=== PATIENT | female | born 1950 | race Caucasian/White ===

== ENCOUNTER 2016-08-29 01:40 | Inpatient (IN) | payer OTHER, MEDICARE ==
[~2016-08-29] VITALS: Ht 157.5 cm; Wt 72.6 kg
[~2016-08-29 01:40] MED LIST: ATORVASTATIN CA40 M1 PO; CALTRATE 600 +1 EACH PO; CETIRIZINE HCL10 M2 PO; CHLORTHALIDONE25 M1 PO; FLUTICASONE PRO16 GM NASB; LISINOPRIL20 M1 PO; MOBIC15 M1 PO; MONTELUKAST SOD10 M1 PO; TRILEPTAL300 M1 PO; VITAMIN D2000 UNIT PO; WELLBUTRIN SR150 M1 PO
--- NOTE | 2016-08-29 09:33 | Operative Report ---
Operative/Inv Procedure Report Surgery Date: 08/29/16 Name of Procedure: Left total knee arthroplasty Pre-Operative Diagnosis: Left knee primary osteoarthritis Post-Operative Diagnosis: Same Estimated Blood Loss: less than 50ml Surgeon/Telemarketer Supervisor: CHINMAY BURROWS,Ford LEE Anesthesia: block Implants: Jason triathlon total knee system-size 3 femur, size 3 tibia, 9 mm cruciate retaining polyethylene, 29 patella Drains: None Specimens: Femoral, tibial, patellar bone Microbiology: Urine Tourniquet: 52 minutes Complications: None Condition: Stable Operative Indication: Patient is a 66-year-old woman with a history of worsening left knee pain. She' s been diagnosed with end-stage osteoarthritis. She underwent conservative management including medications and injections and activity modification but had persistent and worsening symptoms that interfere with normal activities of daily living. She wished to proceed with total knee arthroplasty after discussion of risks, benefits and expectations which included but were not limited to persistent knee pain, need for subsequent surgery, infection, DVT, injury to blood vessel or nerve, anesthesia risks. Operative/Procedure Note Note: Patient was brought to the operating room and transferred to the operating table. Once under appropriate anesthesia the left lower extremity was prepped and draped in standard fashion. Preoperative IV antibiotics were given prophylactically. Leg was elevated exsanguinated tourniquet was inflated. Patient was under the TXA protocol. Standard anterior incision was made for anticipated medial parapatellar approach. Incision was taken down sharply to the underlying retinaculum. A medial retinacular approach was used with a minimal extension into the quadriceps tendon. Osteophytes were excised from patellofemoral and medial compartment remnants of the medial lateral meniscal tissues were excised. Remnants of the ACL were excised. Knee was flexed I then used a drill to enter the intramedullary canal for the intramedullary guide for the distal femoral cut. This cut was set for 6 valgus cut. The cut was made while protecting the soft tissues. I then sized the femur to a size 3. Size 3 cutting guide was pinned in place and the 4 cuts were made again with protecting the soft tissues. I then turned my attention to the tibia. Remnants of the posterior horns of the medial lateral meniscal tissues were excised. The PCL was recessed for balancing purposes. The tibia was subluxed forward and then the external tibial alignment guide was used. The cutting block was pinned in position for a neutral cut from medial to lateral and reproducing patient's posterior slow-paced on preoperative templating and intraoperative measurements. Again the soft tissues were protected with retractors posteriorly and medially and laterally. After the cut was made the tibia was sized to a size 3. Trial was used of size 3 tibia size 3 femur and a 9 mm insert. The knee the knee was taken out to full extension was some mild tenderness medially this was balanced. I then turned my attention to the patella. The patella was measured the appropriate thickness was removed and then restored with a 29 mm patella. The 3 lug holes were drilled. The 2 lug holes of the femur were drilled and the tibial rotation was marked. All trial components and inserted rotation was removed from the knee and then I finished preparation tibia with the tibial punch. This was done standard fashion with the appropriate punch size. I then removed all instrumentation. Copious irrigation the knee followed. I used the anterior chamfer bone of the femur to plug the distal femur hole that was used for the joint to a guide this would minimize postoperative hemarthrosis and swelling. After copious irrigation the knee cement was applied to the dry clean bony surfaces of the tibia. The size 3 tibia was impacted in place with the correct rotation as determined by the trial. Excess cement was removed with curettes. Cement was applied to the dry clean bony surfaces of the femur. The size 3 femoral component was impacted in place and excess cement was removed with curettes. The trial 9 my polyethylene was impacted in place and the knee was taken out to full extension area cement was applied to the dry clean bony surfaces of the patella. The size 29 patella was impacted in place and excess cement was removed. The knee was taken out to full extension left there until cement hardened. I did a periarticular pericapsular injection of ropivacaine with Toradol and epinephrine for postoperative pain and inflammation management. Once cement was hardening took the knee through range of motion. Small pieces of excess cement were removed with osteotomes. The trial polyethylene was removed after determining that the that would it was the appropriate size. 9 mm insert was appropriate for full extension good mid flexion stability and full flexion to gravity. After copious irrigation the tibial tray, I impacted the definitive 9 mm insert. The locking mechanism was confirmed. Knee was taken out to full extension. Again I was satisfied with the stability. I was satisfied with patellar tracking. There was no need for a lateral release. After copious irrigation the tourniquet was deflated at 52 minutes. Hemostasis was obtained. There was no need for a drain. I then closed the medial parapatellar approach with interrupted #1 Vicryl sutures.. This was followed by 2 layer closure with 2-0 Vicryl and skin was closed running 3-0 Vicryl suture with the knee in flexion. Appropriate dressings were applied and patient was awakened and taken the recovery room in good condition. No intraoperative complications. Blood loss was less than 50 mL Discharge Disposition: PACU
[2016-08-29 12:42] VITALS: BP 128/68
[2016-08-29 14:41] VITALS: BP 96/50
--- NOTE | 2016-08-29 15:10 | PN- Orthopedic ---
Subjective Subjective: Pt admits to some nausea after eating soup, but reports relief with zofran. She seems to be tolerating morphine and has already ambulated with PT. She is sitting in the chair at this time and denies pain. Also denies DONOHUE, dizziness, CP , SOB. Objective Vital Signs and I&Os Vital Signs Date Time Temp Pulse Resp B/P B/P Pulse O2 O2 Flow FiO2 Mean Ox Delivery Rate 08/29 1441 97.5 73 18 96/50 94 Room Air 08/29 1242 97.4 70 18 128/68 97 Room Air Room Air Intake & Output 08/29 1600 08/29 0800 08/29 0000 08/28 1600 08/28 0800 08/28 0000 Intake Total 630 Output Total 250 Balance 380 Intake, IV 150 Intake, Oral 480 Output, 50 Emesis Output, Urine 200 Patient 160 lb Weight Physical Exam: Gen.: Patient is awake and alert. She is sitting in the chair. No acute distress. Cardiac: Regular Pulmonary: Lungs are clear bilaterally. Extremities: The left lower extremity dressing is clean, dry, and intact. Sensation is intact from the thigh down to the feet. Strength of dorsiflexion and plantar flexion are 4 out of 5 bilaterally. There is no significant calf tenderness. Alps and On-Q pump are in place. Assessment/Plan Assessment/Plan Patient is a 66-year-old female, smoker, who is now postoperative day #0 status post left total knee replacement. Plan: -Advance diet as tolerated. -Continue IV fluids for now. -Keep Polo catheter in place overnight for I's and O's. -Pain control with morphine or Percocet as needed. On-Q pain catheter is in place for additional relief. -Coumadin for DVT prophylaxis. Follow up INR in the morning. Titrate Coumadin dose to keep INR 2-3. -PT consult for mobilization. Weight-bear as tolerated. -IV antibiotics x 24 hours for prophylaxis. -Plan for dressing change on postoperative day #2. -Home meds have been resumed. Core Measures/Miscellaneous Polo Catheter Date In: 08/29/16 Still Needed? Yes Venous Thromboembolism VTE Risk Factors: Age > 40, Smoking, Surgery VTE Contraindications: No Contraindications VTE Diagnosis: No Beta Teo Is Beta Teo a Home Med? No Antibiotics Is Patient on Antibiotics? Yes If Yes: prophylaxis
--- NOTE | 2016-08-29 16:07 | Surgical Discharge Summary ---
Visit Information Visit Dates Admission Date: 08/29/16 Discharge Date: 09/01/16 History of Present Illness Chief Complaint: Left knee DJD/osteoarthritis, left knee pain Medical History Blood Transfusion Hx: No Neurological: NONE EENT: NONE Cardiovascular: hypertension, HIGH CHOLESTEROL Respiratory: NONE Gastrointestinal: NONE Hepatic: NONE Renal: NONE Musculoskeletal: NONE Psychiatric: NONE Endocrine: NONE Blood Disorders: NONE Cancer(s): NONE DRY CLEANING CHECKER/Reproductive: NONE History of MRSA: No History of VRE: No History of CDIFF: No Isolation History: Standard Surgical History Pertinent Surgical History: cholecystectomy, , hernia repair-inguinal, hernia repair-umbilical, knee replacement Psychosocial History Where Do You Live? Home Who Do You Live With? Patient/Self Services at Home: None What is Your Primary Language? Ukrainian Review of Systems: See H&P Hospital Course Course Attending Physician: CHINMAY BURROWS,MARC Primary Care Physician: ARNOLDO BURROWS,[facility] Course: Patient was admitted to [facility] for elective surgery on 08/29/2006 and underwent left total knee replacement. The patient tolerated the procedure well, without complications. The postoperative course remained uneventful. Pain was well controlled with oral pain medication, tolerated a regular diet, and voiding without difficulty. The patient was evaluated by physical therapy during admission, was deemed stable from a medical standpoint, and was discharged. Allergies: Coded Allergies: No Known Drug Allergies (NONE 08/29/16) Uncoded Allergies: SEASONAL ALLERGIES (Intermediate, NASAL CONGESTION 08/18/16) Significant Procedures: 08/29/2016 left knee replacement Disposition Summary Disposition Principal Diagnosis: Left knee DJD/osteoarthritis Additional Diagnosis: Hypertension, hyperlipidemia, active smoker, mood disorder Discharge Disposition: home health services Discharge Instructions General Discharge Information Code Status: Full Code Patient's Diet: Regular Patient's Activity: Avoid strenuous activity. You may ambulate as desired with rolling walker and progressed per PT recommendations. No driving while using narcotics and until cleared by M.D. Follow-Up Instructions/Appts: Avoid bathing, but you may shower as desired. Dry dressing change once daily. Please check INR on postoperative day #1 and then twice weekly thereafter. Please titrate Coumadin dose to keep INR 2-3. Please follow-up with Marc Bunch MD at 2 weeks postop for staple removal. Please report any of the following symptoms to M.D.: Fever greater than 101, redness around the incision, drainage from the wound, chest pain, shortness of breath. Medications at Discharge Discharge Medications: Continue taking these medications: Lisinopril (Lisinopril) 20 MG TABLET 1 Tablet ORAL Every night Qty = 90 Comments: PER PT NOT GIVEN IN HOSPITAL Atorvastatin Calcium (Atorvastatin Calcium) 40 MG TABLET 1 Tablet ORAL Every night Qty = 30 Comments: PER PT Last Taken: 08/31/16 Time: 900 PM Chlorthalidone (Chlorthalidone) 25 MG TABLET 1 Tablet ORAL Every Morning Qty = 30 Comments: PER PT Last Taken: 09/01/16 Time: 1000 AM Cetirizine HCl (Cetirizine HCl) 10 MG TABLET 1 Tablet ORAL DAILY Qty = 30 Comments: PER PT NOT GIVEN IN HOSPITAL Fluticasone Propionate (Fluticasone Propionate) 16 GM SPRAY.SUSP 1 [place] Both sides of nose DAILY Qty = 16 Comments: PER PT Calcium Carbonate/Vitamin D3 (Caltrate 600 + D Tablet) (Unknown Strength) TABLET Unknown Dose ORAL DAILY Comments: PER PT NOT GIVEN IN HOSPITAL Cholecalciferol (Vitamin D3) (Vitamin D) (Unknown Strength) CAPSULE Unknown Dose ORAL DAILY Comments: PER PT NOT GIVEN IN HOSPITAL Bupropion HCl (Wellbutrin Sr) 150 MG TABLET.ER 1 Tablet ORAL DAILY Comments: Last Taken: 09/01/16 Time: 1000 AM Oxcarbazepine (Trileptal) 300 MG TABLET 1 Tablet ORAL DAILY Comments: Last Taken: 09/01/16 Time: 1000 AM Start taking the following new medications: Warfarin Sodium (Coumadin) 5 MG TABLET 1 Tablet ORAL DAILY Qty = 30 No Refills Instructions: TITRATE DOSE TO KEEP INR 2-3 Comments: SEE ABOVE Oxycodone HCl/Acetaminophen (Percocet 5-325 MG Tablet) 5 MG-325 MG TABLET 1-2 Tablet ORAL EVERY 4 HOURS NEEDED as needed for PAIN Qty = 36 No Refills Comments: Last Taken: 09/01/16 Time: 1000 AM Docusate Sodium (Colace) 100 MG CAPSULE 1 Capsule ORAL TWICE DAILY as needed for CONSTIPATION Days = 7 No Refills Comments: Last Taken: 09/01/16 Time: 900 PM Polyethylene Glycol 3350 (Miralax) 17 GRAM POWD.PACK 1 Packet ORAL DAILY as needed for CONSTIPATION Days = 7 No Refills Comments: Last Taken: 08/31/16 Time: 1000 AM [PT/INR] 1 ANY 2 times per week No Refills Instructions: PT/INR BLOOD DRAW 2X PER WEEK TO KEEP INR BETWEEN 2-3 DX: DVT PROPHYLAXSIS AFTER TKA RESULTS TO DR RASCON Morphine Sulfate (Ms Contin) 15 MG TABLET.ER 1 Tablet ORAL TWICE DAILY Qty = 6 No Refills Comments: Last Taken: 09/01/16 Time: 1000 AM Methocarbamol (Robaxin-750) 750 MG TABLET 1 Tablet ORAL THREE TIMES DAILY as needed for SPASM Qty = 21 No Refills Comments: NOT GIVEN IN HOSPITAL Warfarin Sodium (Coumadin) 1 MG TABLET 1 Tablet ORAL As Directed Qty = 30 No Refills Instructions: DOSE PER INR Comments: Last Taken: 08/31/16 Time: 445 PM Nicotine (Nicoderm Cq) 14 MG/24 HOUR PATCH.TD24 1 Patch On the skin DAILY Qty = 14 No Refills Comments: Last Taken: 09/01/16 Time: 1000 AM
[2016-08-29] MEDS ORDERED: MIRALAX17 G1 PO (16:21)
[2016-08-29] MEDS ORDERED: COUMADIN5 M2 PO (16:21)
[2016-08-29] MEDS ORDERED: PERCOCET 5-3251 EACH PO (16:21)
[2016-08-29] MEDS ORDERED: COLACE100 M1 PO (16:21)
--- NOTE | 2016-08-29 16:23 | Patient Discharge Instructions ---
Discharge Instructions General Discharge Information You were seen/treated for: Left knee DJD/osteoarthritis You had these procedures: Left total knee replacement Watch for these problems: Fever of 101, redness, drainage, excessive pain or difficulty bearing weight. Call Surgeon to remove: Halye (2 WKS) Do not soak the wound: Yes No bath, but you may shower: Yes Other wound care: Avoid bathing, but you may shower as desired. Dry dressing change once daily. Please check INR on postoperative day #1 and then twice weekly thereafter. Please titrate Coumadin dose to keep INR 2-3. Special Instructions: HOLD YOUR COUMADIN TO NIGHT , 09/01, AND HAVE THIS RECHECKED TOMORROW. Diet Continue normal diet: Yes Recommended Diet: Heart Healthy Activity Full Activity/No Limits: No Activity Self Limited: Yes Pounds, do NOT lift more than: 5 Activity Limited to: Weight bear as tolerated Other activity limits: You may ambulate as desired with rolling walker. Avoid strenuous activity and heavy lifting, pushing, or pulling. No driving while using narcotics. Acute Coronary Syndrome Inclusion Criteria At DC or during hospital stay patient has or had the following: ACS DIAGNOSIS No Discharge Core Measures Meds if any: Prescribed or Continued at Discharge Meds if any: NOT Prescribed or Continued at Discharge Congestive Heart Failure Inclusion Criteria At DC or during hospital stay patient has or had the following: CHF DIAGNOSIS No Discharge Core Measures Meds if any: Prescribed or Continued at Discharge Meds if any: NOT Prescribed or Continued at Discharge Cerebrovascular accident Inclusion Criteria At DC or during hospital stay patient has or had the following: CVA/TIA Diagnosis No Discharge Core Measures Meds if any: Prescribed or Continued at Discharge Meds if any: NOT Prescribed or Continued at Discharge Venous thromboembolism Inclusion Criteria VTE Diagnosis No VTE Type NONE VTE Confirmed by (Test) NONE Discharge Core Measures - Per Current guidelines, there needs to be overlap - treatment for the first 5 days of Warfarin therapy. - If discharged on Warfarin prior to 5 days of - overlap therapy, the patient will need to be - assessed for post discharge needs including - *Post discharge parental anticoagulation - *Warfarin and/or parental anticoagulation education - *Follow up date to check INR post discharge At least 5 days overlap therapy as Inpatient No Meds if any: Prescribed or Continued at Discharge Note: Overlap Therapy is Warfarin and Anticoagulant Meds if any: NOT Prescribed or Continued at Discharge
[2016-08-29 17:16] VITALS: BP 111/81
[2016-08-29 19:26] VITALS: BP 102/70
[2016-08-29 22:40] VITALS: BP 100/60
[2016-08-30 01:13] VITALS: BP 100/60
[2016-08-30 03:20] VITALS: BP 120/68
[2016-08-30 06:13] VITALS: BP 110/62
--- NOTE | 2016-08-30 07:26 | PN- Orthopedic ---
See Addendum Subjective Subjective: The patient was seen this morning postoperatively day 1. She reports that her leg feels heavy and that's last night she is having a little bit more pain than expected. She does mention that after she got the Percocet she was feeling much more comfortable and currently has minimal discomfort. She has no other complaints at the current time. Objective Vital Signs and I&Os Vital Signs Date Time Temp Pulse Resp B/P B/P Pulse O2 O2 Flow FiO2 Mean Ox Delivery Rate 08/30 0613 99.8 92 18 110/62 92 Room Air 08/30 0320 120/68 08/30 0113 98.9 65 18 100/60 93 Room Air 08/29 2240 98.8 85 18 100/60 95 Room Air 08/29 2220 Room Air Room Air 08/29 2218 85 100/60 08/29 1926 98.4 83 18 102/70 93 Room Air 08/29 1716 98.0 79 18 111/81 95 Room Air 08/29 1441 97.5 73 18 96/50 94 Room Air 08/29 1242 97.4 70 18 128/68 97 Room Air Room Air Intake & Output 08/30 0800 08/30 0000 08/29 1600 / 0800 08/29 0000 08/28 1600 Intake Total 600 720 630 Output Total 900 750 250 Balance -300 -30 380 Intake, IV 600 300 150 Intake, Oral 420 480 Output, 50 Emesis Output, Urine 900 750 200 Patient 160 lb Weight Physical Exam: Gen.: Alert and in no obvious distress Skin: Warm and dry Extremities: Bilateral lower extremities are warm without calf tenderness or significant edema. Gross motor and sensory are intact. Left lower extremity surgical dressing is clean, dry, and intact. There is an On-Q pain pump in place. Assessment/Plan Assessment/Plan Assessment: 66-year-old female status post left total knee arthroplasty postoperative day 1. The patient is progressing as expected and her pain is under adequate control. Plan: Hep-Lock IV fluids and DC Polo catheter Out of bed with physical therapy patient is weightbearing as tolerated Keep On-Q pain pump in place Follow-up morning laboratory studies and dose Coumadin for an INR between 2 and 3 GI and DVT prophylaxis Continue current pain regiment First surgical dressing change tomorrow Core Measures/Miscellaneous Polo Catheter Date In: 08/29/16 Venous Thromboembolism VTE Risk Factors: Age > 40, Smoking, Surgery VTE Contraindications: No Contraindications VTE Diagnosis: No Beta Teo Is Beta Teo a Home Med? No Antibiotics Is Patient on Antibiotics? No
[2016-08-30 08:02] LABS: ABSOLUTE BASOPHIL COUNT 0 /CUMM (0.0-0.2); ABSOLUTE EOSINOPHIL COUNT 0.2 /CUMM (0.0-0.7); ABSOLUTE GRANULOCYTE CT 6.9 /CUMM (1.4-6.5); ABSOLUTE LYMPH COUNT 1.5 /CUMM (1.2-3.4); ABSOLUTE MONOCYTE COUNT 0.6 /CUMM (0.10-0.60); BASOPHIL % 0.3 % (0.0-2.0); GRANULOCYTE % 75.5 % (42.2-75.2); MEAN CORPUSCULAR HGB CONC 33.9 G/DL (33.0-37.0); MEAN CORPUSCULAR VOLUME 91.5 FL (81.0-99.0); MEAN PLATELET VOLUME 9.8 FL (7.4-10.4); PLATELET COUNT 192 /CUMM (130-400); RED BLOOD CELL CT 3.61 /CUMM (4.20-5.40); WHITE BLOOD CELL COUNT 9.2 /CUMM (4.8-10.8)
[2016-08-30 08:11] LABS: PT 12.1 SEC (9.4-12.5)
[2016-08-30 08:51] VITALS: BP 112/63
--- NOTE | 2016-08-30 13:47 | NUR ---
PHYSICAL THERAPY: ATTEMPTED TO SEE PT THIS AFTERNOON, PT RECEIVED IN BED ASLEEP AND REFUSED TO PARTICIPATE WITH P.T. D/T PAIN AND FATIGUE. PT INFORMED THAT SHE WILL NOT BE SEEN AGAIN BY P.T. UNTIL TOMORROW MORNING. THANK YOU.
[2016-08-30 14:20] VITALS: BP 138/80
[2016-08-30 22:16] VITALS: BP 154/80
[2016-08-31 06:58] VITALS: BP 136/62
--- NOTE | 2016-08-31 08:06 | PN- Orthopedic ---
See Addendum Subjective Subjective: The patient is seen this morning postoperatively day #2. She reports that her pain is better well managed with current pain regiment. She has no complaints current time and is eager to get out of bed with physical therapy. Objective Vital Signs and I&Os Vital Signs Date Time Temp Pulse Resp B/P B/P Pulse O2 O2 Flow FiO2 Mean Ox Delivery Rate 08/31 0744 98.8 08/31 0658 100.1 85 18 136/62 91 Room Air 08/30 2216 99.1 79 19 154/80 94 Room Air / 2123 154/80 / 1421 Room Air Room Air / 1420 98.1 72 18 138/80 92 Room Air / 0851 99.5 86 20 112/63 91 Room Air Intake & Output 08/31 1600 08/31 0800 / 0000 / 1600 / 0800 / 0000 Intake Total 085 843 9739 600 720 Output Total 295 265 2397 900 750 Balance -280 -160 -375 -300 -30 Intake, IV 75 600 300 Intake, Oral 724 728 1977 420 Output, Urine 067 640 6799 900 750 Physical Exam: Gen.: Alert and obvious distress Skin: Warm and dry Extremities: Bilateral lower extremities are warm without calf tenderness or significant edema. Gross motor and sensory are intact Left knee surgical dressing was changed and incision is clean, dry, and intact without signs of infection. Assessment/Plan Assessment/Plan Assessment: 66-year-old female status post left total knee arthroplasty postoperative day #2. The patient is progressing as expected and her pain is much improved with change in current pain regiment Plan: Continue to work with physical therapy Keep current pain regiment as is Follow-up morning laboratory studies and repeat dose Coumadin for an INR between 2 and 3 GI and DVT prophylaxis Probable discharged to short-term rehabilitation tomorrow Daily dry dressing change Core Measures/Miscellaneous Polo Catheter Date In: 08/29/16 Venous Thromboembolism VTE Risk Factors: Age > 40, Smoking, Surgery VTE Contraindications: No Contraindications VTE Diagnosis: No Beta Teo Is Beta Teo a Home Med? No Antibiotics Is Patient on Antibiotics? No
[2016-08-31 08:42] LABS: PT 16.6 SEC (9.4-12.5)
--- NOTE | 2016-08-31 13:55 | RADIOLOGY REPORT ---
EXAMINATION: XR KNEE, LEFT CLINICAL INFORMATION: 66-year-old female, status post left total knee arthroplasty. COMPARISON: Left knee done on 11/20/2015. TECHNIQUE: Two views of the left knee. FINDINGS: Prosthetic components of the left total knee arthroplasty are appropriately aligned. No periprosthetic fracture. Gas from recent surgery is present in the joint and surrounding soft tissues. A joint effusion is present. IMPRESSION: Appropriate alignment of the left total knee arthroplasty without evidence of complications.
[2016-08-31 14:37] VITALS: BP 122/78
[2016-08-31 22:44] VITALS: BP 118/76
[2016-09-01 06:32] VITALS: BP 124/78
--- NOTE | 2016-09-01 07:29 | PN- Orthopedic ---
Subjective Subjective: Patient is comfortable, pain is under control, she declined the MS Contin and Robaxin on the last dose and states that she should have taken it because she had more pain and feels better while taking those. She denies any fever or flulike illness. She states she would like to go home today. Objective Vital Signs and I&Os Vital Signs Date Time Temp Pulse Resp B/P B/P Pulse O2 O2 Flow FiO2 Mean Ox Delivery Rate 09/01 0532 99.3 98 20 124/78 96 Room Air 08/31 2244 98.1 77 16 118/76 96 Room Air 08/31 2057 130/76 08/31 1437 98.4 82 18 122/78 96 Room Air 08/31 0800 93 Room Air 08/31 0744 98.8 Intake & Output 09/01 0809/01 0000 08/31 1600 08/31 0800 08/31 0000 08/30 1600 Intake Total 240 450 310 469 210 6237 Output Total 600 503 632 4098 Balance 240 450 -290 -280 -160 -375 Intake, IV 10 75 Intake, Oral 240 450 300 592 032 6324 Number 1 Bowel Movements Output, Urine 600 722 171 9425 Physical Exam: Well-developed well-nourished no apparent distress. HEENT: Atraumatic, extraocular motion intact Neck: Supple, no lymphadenopathy Respiratory: No respiratory distress Extremities: No edema LEFT lower extremity dressing in place, Incision line is clean dry and intact with minimal bloody drainage. No signs of infection. Mild joint effusion Range of motion is 0-60. Neurovascularly intact distally Bilateral calves are supple, nontender. Neuro: Alert and oriented x3 Psych: Mood affect normal, normal memory normal judgment. Skin: Warm and dry, no rash on exposed skin Assessment/Plan Assessment/Plan Postop day 3 status post left total knee arthroplasty -Coumadin per INR, check this morning -Continue PT, out of bed -Pain medication -Discharge to home with the vna services today -Patient has follow-up in 11 days as outpatient Core Measures/Miscellaneous Polo Catheter Date In: 08/29/16 Venous Thromboembolism VTE Risk Factors: Age > 40, Smoking, Surgery VTE Contraindications: No Contraindications VTE Diagnosis: No Beta Teo Is Beta Teo a Home Med? No Antibiotics Is Patient on Antibiotics? No
[2016-09-01] MEDS ORDERED: COUMADIN1 M1 PO (07:40)
[2016-09-01] MEDS ORDERED: ROBAXIN-750750 M1 PO (07:40)
[2016-09-01] MEDS ORDERED: MS CONTIN15 M2 PO (07:40)
[2016-09-01] MEDS ORDERED: PT/INR ANY (07:40)
[2016-09-01 08:22] LABS: PT 24.4 SEC (9.4-12.5)
[2016-09-01] MEDS ORDERED: NICODERM CQ1 EAC1 TOP (09:16)
[2016-09-01 14:03] VITALS: BP 102/64
== END 2016-09-01 16:21 | disposition home health service (06) | DRG 470 ==
LOC: SDA 01:40 → 2NB 01:40 → ENRESERV 11:21 → 2NB 12:25 → ENPENDDIS 09-01 07:43 → 2NB 09-01 16:21
PROVIDERS: Physician Assistant Surgical; ADMIT Orthopaedic Surgery
PROC: 0SRD0J9 Replacement of Left Knee Joint with Synthetic Substitute, Cemented, Open Approach (ICD-10-PCS; principal; 2016-08-29)
DX: M17.12 Unilateral primary osteoarthritis, left knee (principal); I10 Essential (primary) hypertension; E66.9 Obesity, unspecified; Z68.29 Body mass index [BMI] 29.0-29.9, adult; E78.5 Hyperlipidemia, unspecified; J43.9 Emphysema, unspecified
CPT/HCPCS: 2NBSP; 36415; 73560-LT; 82436; 87086; 88305; 97110-GO; 97116-GO; 97161-GP; 97530-GO; C1713; J0131; J0171; J1885; J2405; J2795; J3370; J7040

== ENCOUNTER 2016-09-25 08:19 | Emergency (ER) | payer OTHER, MEDICARE ==
[~2016-09-25] VITALS: Ht 157.5 cm; Wt 71.7 kg
[~2016-09-25 08:19] MED LIST changes: +COLACE100 M1 PO; +COUMADIN1 M1 PO; +COUMADIN5 M2 PO; +MIRALAX17 G1 PO; +MS CONTIN15 M2 PO; +NICODERM CQ1 EAC1 TOP; +PERCOCET 5-3251 EACH PO; +PT/INR ANY; +ROBAXIN-750750 M1 PO
[2016-09-25 08:24] VITALS: BP 110/74
--- NOTE | 2016-09-25 08:45 | ED UPPER/LOWER EXTREMITY COMPL ---
History of Present Illness General Chief Complaint: Lower Extremity Problems Stated Complaint: "PER PT LT KNEE PAIN" Source: patient Exam Limitations: no limitations Vital Signs & Intake/Output Vital Signs & Intake/Output ED Intake and Output 09/26 0000 09/25 1200 Intake Total Output Total Balance Patient 158 lb Weight Allergies Coded Allergies: No Known Allergies (09/25/16) Reconcile Medications Atorvastatin Calcium 40 MG TABLET 1 TAB PO QPM CHOLESTEROL (Reported) Bupropion HCl (Wellbutrin Sr) 150 MG TABLET.ER 1 TAB PO DAILY SMOKING CESSATION (Reported) Calcium Carbonate/Vitamin D3 (Caltrate 600 + D Tablet) (Unknown Strength) TABLET (Unknown Dose) PO DAILY SUPPLEMENT (Reported) Cetirizine HCl 10 MG TABLET 1 TAB PO DAILY ALLERGIES (Reported) Chlorthalidone 25 MG TABLET 1 TAB PO QAM BP (Reported) Cholecalciferol (Vitamin D3) (Vitamin D) (Unknown Strength) CAPSULE (Unknown Dose) PO DAILY SUPPLEMENT (Reported) Docusate Sodium (Colace) 100 MG CAPSULE 1 CAP PO BID PRN CONSTIPATION Fluticasone Propionate 16 GM SPRAY.SUSP 1 SPRAY NASB DAILY ALLERGIES ( Reported) Lisinopril 20 MG TABLET 1 TAB PO QPM BP (Reported) Methocarbamol (Robaxin-750) 750 MG TABLET 1 TAB PO TID PRN SPASM Morphine Sulfate (Ms Contin) 15 MG TABLET.ER 1 TAB PO BID PAIN Nicotine (Nicoderm Cq) 14 MG/24 HOUR PATCH.TD24 1 PAT TOP DAILY smoking cessation Oxcarbazepine (Trileptal) 300 MG TABLET 1 TAB PO DAILY MOOD DISORDER ( Reported) Oxycodone HCl/Acetaminophen (Percocet 5-325 MG Tablet) 5 MG-325 MG TABLET 1-2 TAB PO Q4P PRN PAIN Polyethylene Glycol 3350 (Miralax) 17 GRAM POWD.PACK 1 PAC PO DAILY PRN CONSTIPATION [PT/INR] 1 ANY 2XW ANTICOAGULATION PT/INR BLOOD DRAW 2X PER WEEK TO KEEP INR BETWEEN 2-3 DX: DVT PROPHYLAXSIS AFTER TKA RESULTS TO DR RASCON Warfarin Sodium (Coumadin) 1 MG TABLET 1 TAB PO AD ANTICOAGULATION DOSE PER INR Warfarin Sodium (Coumadin) 5 MG TABLET 1 TAB PO DAILY DVT PROPHYLAXIS TITRATE DOSE TO KEEP INR 2-3 Triage Note: PT TO TRIAGE WITH LEFT KNEE PAIN, MOSTLY AT NIGHT WHICH HAS BEEN KEEPING HER AWAKE. PT HAD KNEE REPLACED WITH DR OILVAS ON August. PT IS CURRENTLY ON BLOOD THINNERS SINCE SURGERY. WOUND IS APPROXIMATED, CLEAN DRY AND INTACT, NO REDDNESS Triage Nurses Notes Reviewed? yes HPI: Patient presents for evaluation of left knee pain that began after knee replacement surgery August 29. Patient states her recovery was proceeding uneventfully but over the past few days her knee pain is again to get worse. It is a constant aching pain that is worse at night. She states that she has been taking tramadol for the pain but feels she might need to go back to the Percocet. She is reluctant to begin the stronger pain relievers at this time. She was last evaluated by her orthopedic surgeon last week and everything seemed to be doing well. Past History Travel History Traveled to [place] past 21 day No Medical History Any Pertinent Medical History? see below for history Neurological: NONE EENT: NONE Cardiovascular: hypertension, HIGH CHOLESTEROL Respiratory: NONE Gastrointestinal: NONE Hepatic: NONE Renal: NONE Musculoskeletal: NONE Psychiatric: NONE Endocrine: HYPERPARATHYROID Blood Disorders: NONE Cancer(s): NONE SWITCH[employer] ME[employer]IC/Reproductive: NONE History of MRSA: No History of VRE: No History of CDIFF: No Surgical History Surgical History: cholecystectomy, , hernia repair-inguinal, hernia repair-umbilical, knee replacement Psychosocial History Who do you live with Patient/Self Services at Home None What is your primary language Kiswahili Tobacco Use: Current Daily Use Daily Tobacco Use Amount/Type: => 5 Cigarettes daily ETOH Use: heavy use Illicit Drug Use: denies illicit drug use Family History Hx Contributory? No Review of Systems Review of Systems Constitutional: Reports: no symptoms. EENTM: Reports: no symptoms. Respiratory: Reports: no symptoms. Cardiovascular: Reports: no symptoms. Gastrointestinal/Abdominal: Reports: no symptoms. Genitourinary: Reports: no symptoms. Musculoskeletal: Reports: see HPI. Skin: Reports: no symptoms. Neurological/Psychological: Reports: no symptoms. Hematologic/Endocrine: Reports: no symptoms. Immunological: Reports: no symptoms. All Other Systems: Reviewed and Negative Physical Exam Physical Exam General Appearance: See below Comments: Gen.: Well-nourished, well-developed, no acute respiratory distress. Head: Normocephalic, atraumatic. Eyes: Normal inspection bilaterally Ears: Normal inspection bilaterally Nose: Normal inspection, nasal cannula in place Throat/mouth : Moist mucosa Neck: Supple, full range of motion, no goiter Heart: Regular rate and rhythm Lungs: Quiet respirations Back: Normal range of motion Extremities: Left knee: Mild clinical effusion, well-healing surgical wound, no erythema or warmth, slightly decreased range of motion (patient unable to extend fully), these knee is clinically stable. The left lower extremity is neurovascularly intact distally. Neurologic: Cranial nerves grossly intact, speech is clear Skin: warm and dry Psychiatric: Calm, cooperative, no apparent delusions or hallucinations Progress Differential Diagnosis: septic arthritis, hemarthrosis, effusion, hardware failure Plan of Care: Orders Procedure Date/time Status XRY-KNEE COMPLETE LEFT 09/26 0752 Active Comments: Patient left emergency Department prior to x-ray. Was seen getting into her automobile. Departure Departure Disposition: LEFT AGAINST MEDICAL ADVICE Condition: Stable Clinical Impression Primary Impression: Left knee pain Qualifiers: Chronicity: unspecified Qualified Code: M25.562 - Pain in left knee Referrals: FERNANDO MCLAUGHLIN MD (PCP/Family) Departure Forms: Customer Survey General Discharge Information
== END 2016-09-25 09:19 | disposition left against medical advice (07) ==
LOC: ERH 08:19
DX: M25.562 Pain in left knee (principal)